=== PATIENT | female | born 1940 | race Caucasian/White ===

== ENCOUNTER 2018-05-29 12:19 | Inpatient (IN) | payer OTHER ==
[~2018-05-29] VITALS: Ht 152.4 cm; Wt 47.2 kg
[2018-05-29] MEDS ORDERED: JANUMET XR 50-1 EAC1 PO (13:32)
[2018-05-29] MEDS ORDERED: NEXIUM40 M1 PO (13:32)
[2018-05-29] MEDS ORDERED: ZOCOR40 MG PO (13:32)
[2018-05-29] MEDS ORDERED: PRINIVIL20 MG PO (13:32)
[2018-05-29] MEDS ORDERED: ARICEPT5 MG PO (13:32)
[2018-05-29] MEDS ORDERED: TIROSINT88 MCG PO (13:33)
== END 2018-06-05 15:37 | disposition home or self-care (01) | DRG 392 ==
LOC: ER 12:19 → SEC-K 17:27 → MEDJ 17:27
PROVIDERS: ADMIT Internal Medicine
PROC: BW21Y0Z Computerized Tomography (CT Scan) of Abdomen and Pelvis using Other Contrast, Unenhanced and Enhanced (ICD-10-PCS; principal; 2018-05-29)
PROC: 02HV33Z Insertion of Infusion Device into Superior Vena Cava, Percutaneous Approach (ICD-10-PCS; 2018-05-30)
DX: K57.32 Diverticulitis of large intestine without perforation or abscess without bleeding (principal); N20.2 Calculus of kidney with calculus of ureter; E78.2 Mixed hyperlipidemia; E86.0 Dehydration; E03.8 Other specified hypothyroidism; E87.8 Other disorders of electrolyte and fluid balance, not elsewhere classified; E11.9 Type 2 diabetes mellitus without complications; Z79.4 Long term (current) use of insulin; M79.7 Fibromyalgia

== ENCOUNTER 2018-07-01 10:15 | Inpatient (IN) | payer OTHER ==
[~2018-07-01] VITALS: Ht 157.5 cm; Wt 63.5 kg
[~2018-07-01 10:15] MED LIST: ARICEPT5 MG PO; JANUMET XR 50-1 EAC1 PO; NEXIUM40 M1 PO; PRINIVIL20 MG PO; TIROSINT88 MCG PO; ZOCOR40 MG PO
[2018-07-01] MEDS ORDERED: JANUMET XR 50-1 EAC1 PO (12:49)
[2018-07-01] MEDS ORDERED: NEXIUM40 M1 PO (12:50)
[2018-07-01] MEDS ORDERED: ZOCOR40 MG PO (12:50)
[2018-07-01] MEDS ORDERED: SEROQUEL50 MG PO (12:50)
[2018-07-01] MEDS ORDERED: XANAX1 MG PO (12:51)
[2018-07-01] MEDS ORDERED: CIMBALTA PO (12:52)
[2018-07-01] MEDS ORDERED: GABAPENTIN400 MG PO (12:53)
[2018-07-01] MEDS ORDERED: TUMERIC PO (12:53)
[2018-07-13] MEDS ORDERED: KETOROLAC TROME10 MG PO (10:49)
[2018-07-13] MEDS ORDERED: INTEGRA PLUS C1 EACH PO (10:49)
[2018-07-13] MEDS ORDERED: TRAM1TAB98 PO (10:50)
== END 2018-07-13 12:52 | disposition home or self-care (01) | DRG 330 ==
LOC: SURG 07-08 05:30 → O/R 07-08 05:30 → SURH 07-08 10:15 → SURG 07-08 11:36 → SURH 07-08 14:45 → SURG 07-13 12:52
PROVIDERS: ADMIT Surgery
PROC: 0DJD8ZZ Inspection of Lower Intestinal Tract, Via Natural or Artificial Opening Endoscopic (ICD-10-PCS; 2018-07-08)
PROC: 0DTN4ZZ Resection of Sigmoid Colon, Percutaneous Endoscopic Approach (ICD-10-PCS; principal; 2018-07-08 14:45)
PROC: 05H633Z Insertion of Infusion Device into Left Subclavian Vein, Percutaneous Approach (ICD-10-PCS; 2018-07-08 14:45)
DX: K57.32 Diverticulitis of large intestine without perforation or abscess without bleeding (principal); D62 Acute posthemorrhagic anemia; E86.0 Dehydration; I10 Essential (primary) hypertension; E78.49 Other hyperlipidemia; E03.8 Other specified hypothyroidism; F32.89 Other specified depressive episodes